=== PATIENT | male | born 1980 | race Two or more races ===

== ENCOUNTER 2018-12-28 10:53 | Emergency (ER) | payer OTHER ==
[~2018-12-28] VITALS: Ht 165.1 cm; Wt 73.5 kg
[2018-12-28 10:53] VITALS: BP 133/85
[~2018-12-28 10:53] MED LIST: LEVE500T9 PO; PHEN100C4 PO
--- NOTE | 2018-12-28 10:55 | NUR ---
pATIENT SEEN IN BED 9. P A/OX4 PATIENT CONNECTED TO MONITOR. NAD. SEIZURE PRECAUTIONS INITIATED. AWAITING MD JARRETT.
--- NOTE | 2018-12-28 11:27 | NUR ---
IV INITIATED. BLOOD DRAWN FOR LAB.
[2018-12-28] MEDS ORDERED: GABAPENTIN 300 MG CAPSULE ONE (11:41)
[2018-12-28] MEDS ORDERED: GABAPENTIN 100 MG CAPSULE ONE (11:41)
[2018-12-28] MEDS ORDERED: GABAPENTIN 100 MG CAPSULE PO ONE (12:00)
--- NOTE | 2018-12-28 12:54 | NUR ---
Felipe sigala in [facility] - 12/28/18 at 1254 by CRISSY Patient discharged to home in stable condition. Written and verbal after care instructions given. Patient verbalizes understanding of instruction.
--- NOTE | 2018-12-28 12:54 | NUR ---
Patient discharged tin custody in stable condition. Written and verbal after care instructions given. Patient verbalizes understanding of instruction.
== END 2018-12-28 12:56 ==
LOC: ER 10:56
DX: G40.909 Epilepsy, unspecified, not intractable, without status epilepticus (principal); F19.90 Other psychoactive substance use, unspecified, uncomplicated; F10.10 Alcohol abuse, uncomplicated; F17.200 Nicotine dependence, unspecified, uncomplicated; Y90.9 Presence of alcohol in blood, level not specified; Z88.0 Allergy status to penicillin

== ENCOUNTER 2018-12-28 14:31 | Emergency (ER) | payer OTHER ==
[~2018-12-28] VITALS: Ht 165.1 cm; Wt 68.0 kg
[2018-12-28 14:40] VITALS: BP 113/73
--- NOTE | 2018-12-28 15:50 | NUR ---
AT BEDSIDE FOR EVAL.
--- NOTE | 2018-12-28 16:19 | NUR ---
Patient discharged in custody in stable condition. Written and verbal after care instructions given. Patient verbalizes understanding of instruction.
== END 2018-12-28 16:24 ==
LOC: ER 14:33
DX: G40.909 Epilepsy, unspecified, not intractable, without status epilepticus (principal); F19.90 Other psychoactive substance use, unspecified, uncomplicated; F10.10 Alcohol abuse, uncomplicated; F17.200 Nicotine dependence, unspecified, uncomplicated; Y90.9 Presence of alcohol in blood, level not specified; Z88.0 Allergy status to penicillin

== ENCOUNTER 2019-01-29 16:02 | Emergency (ER) | payer OTHER ==
[~2019-01-29] VITALS: Ht 165.1 cm; Wt 71.7 kg
[2019-01-29 16:54] LABS: BASOPHILS % (AUTO) 0.5 % (0.0-2.0); EOSINOPHILS % (AUTO) 2.1 % (0.0-6.0); HEMATOCRIT 44 % (39-51); LYMPHOCYTES # (AUTO) 1.7 /CMM (0.8-4.8); LYMPHOCYTES % (AUTO) 21.6 % (20.0-44.0); MEAN CORPUSCULAR HGB CONC 35 g/dl (31.0-36.0); MEAN CORPUSCULAR VOLUME 90 fL (80-96); MONOCYTES % (AUTO) 12.5 % (2.0-12.0); NEUTROPHILS % (AUTO) 63.3 % (43.0-81.0); PLATELET COUNT (AUTO) 271 /CMM (150-450); RED BLOOD CELL COUNT(AUTO) 4.81 MIL/uL (4.5-6.0); WHITE BLOOD COUNT (AUTO) 7.8 K/uL (4.3-11.0)
[2019-01-29] MEDS ORDERED: LEVETIRACETAM (500MG) 1,000 MG in IV NS 0.9% 100 ML IV SCH (17:00)
[2019-01-29 17:18] LABS: ALCOHOL, BLOOD < 3 mg/dL (0-0); CALCIUM, SERUM 8.6 mg/dL (8.5-10.1); CARBON DIOXIDE 29 mmol/L (21-32); CHLORIDE 102 mmol/L (98-107); CREATININE 0.8 mg/dL (0.6-1.3); GLUCOSE 81 mg/dL (74-106); SODIUM SERUM 139 mmol/L (136-145); UREA NITROGEN, BLOOD 16 mg/dL (7-18)
--- NOTE | 2019-01-29 17:45 | NUR ---
Patient discharged to home in stable condition. Written and verbal after care instructions given. Patient verbalizes understanding of instruction. IV removed. Catheter intact and site benign. Pressure and 4x4 applied to site. No bleeding noted.
[2019-01-29 17:46] VITALS: BP 132/70
== END 2019-01-29 17:47 ==
LOC: ER 16:08
DX: G40.909 Epilepsy, unspecified, not intractable, without status epilepticus (principal); H66.91 Otitis media, unspecified, right ear; F19.90 Other psychoactive substance use, unspecified, uncomplicated; F10.10 Alcohol abuse, uncomplicated; F17.200 Nicotine dependence, unspecified, uncomplicated; Y90.0 Blood alcohol level of less than 20 mg/100 ml; Z88.0 Allergy status to penicillin
CPT/HCPCS: 36415; 70450; 71045; 80048; 80307; 85025; 96365; 99284; A6403; J1953; J7030 ×2; G0480

== ENCOUNTER 2019-02-23 14:33 | Emergency (ER) | payer OTHER ==
[~2019-02-23] VITALS: Ht 165.1 cm; Wt 78.9 kg
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
[2019-02-23] MEDS ORDERED: LEVETIRACETAM (250 MG) 250 MG TABLET PO ONE ×2 (15:00→15:05)
--- NOTE | 2019-02-23 15:17 | NUR ---
BLOOD DRAWN AND SENT TO LAB
[2019-02-23 15:19] LABS: BASOPHILS % (AUTO) 0.3 % (0.0-2.0); EOSINOPHILS % (AUTO) 3.3 % (0.0-6.0); HEMATOCRIT 45 % (39-51); HEMOGLOBIN 14.7 g/dL (13.5-17.5); LYMPHOCYTES # (AUTO) 1.6 /CMM (0.8-4.8); LYMPHOCYTES % (AUTO) 18.9 % (20.0-44.0); MEAN CORPUSCULAR HGB CONC 33 g/dl (31.0-36.0); MEAN CORPUSCULAR VOLUME 91 fL (80-96); MONOCYTES # (AUTO) 1.1 /CMM (0.1-1.30); MONOCYTES % (AUTO) 12.9 % (2.0-12.0); NEUTROPHILS # (AUTO) 5.4 /CMM (1.8-8.9); NEUTROPHILS % (AUTO) 64.6 % (43.0-81.0); PLATELET COUNT (AUTO) 247 /CMM (150-450); RED BLOOD CELL COUNT(AUTO) 4.88 MIL/uL (4.5-6.0); WHITE BLOOD COUNT (AUTO) 8.3 K/uL (4.3-11.0)
[2019-02-23 15:27] LABS: CALCIUM, SERUM 8.8 mg/dL (8.5-10.1); CREATININE 0.8 mg/dL (0.6-1.3); POTASSIUM 4.2 mmol/L (3.5-5.1)
--- NOTE | 2019-02-23 16:33 | NUR ---
Patient discharged in custody of [facility] in stable condition. Written and verbal after care instructions given. 

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
[2019-02-23 16:43] VITALS: BP 132/84
== END 2019-02-23 16:44 ==
LOC: ER 14:35
DX: S60.222A Contusion of left hand, initial encounter (principal); S00.511A Abrasion of lip, initial encounter; G40.909 Epilepsy, unspecified, not intractable, without status epilepticus; F19.90 Other psychoactive substance use, unspecified, uncomplicated; F10.10 Alcohol abuse, uncomplicated; F17.200 Nicotine dependence, unspecified, uncomplicated; Y90.9 Presence of alcohol in blood, level not specified; Z88.0 Allergy status to penicillin; Z79.899 Other long term (current) drug therapy; W18.39XA Other fall on same level, initial encounter; Y93.89 Activity, other specified; Y92.89 Other specified places as the place of occurrence of the external cause; Y99.8 Other external cause status
CPT/HCPCS: 36415; 73130-TC; 80048-TC; 85025-TC

== ENCOUNTER 2020-02-05 15:44 | Emergency (ER) | payer OTHER, MEDICAID ==
[~2020-02-05] VITALS: Ht 167.6 cm; Wt 90.7 kg
--- NOTE | 2020-02-05 15:55 | NUR ---
BIB PEDIATRICIAN/MEDICAL DOCTOR OFFICERS FOR MEDICAL CLEARANCE,ABRASIONS/BRUISE TO TOP OF HEAD SUSTAINED WHEN HE HIT HIS HEAD DURING A SEIZURE IN DETENTION. PATIENT A/OX4, BREATHING EVEN AND UNLABORED, NO SOB NOTED, NEEDS ATTENDED, KEPT COMFORTABLE.
[2020-02-05] MEDS ORDERED: LEVETIRACETAM (250 MG) 250 MG TABLET PO ONE ×2 (16:00→16:03)
[2020-02-05] MEDS ORDERED: TDAP [DIPH/PERTUSSIS/TET] 0.5 ML VIAL IM ONE ×2 (16:00→16:03)
--- NOTE | 2020-02-05 16:09 | NUR ---
PATIENT TAKEN TO CT.
--- NOTE | 2020-02-05 17:01 | NUR ---
CORRECTION: DISCHARGED TO PD. MEDICALLY CLEARED FOR BOOKING.
--- NOTE | 2020-02-05 17:01 | NUR ---
Patient discharged to home in stable condition. Written and verbal after care instructions given. Patient verbalizes understanding of instruction.
[2020-02-05 17:02] VITALS: BP 163/80
== END 2020-02-05 17:03 ==
LOC: ER 15:48
DX: S00.01XA Abrasion of scalp, initial encounter (principal); G40.909 Epilepsy, unspecified, not intractable, without status epilepticus; Z88.0 Allergy status to penicillin; Z79.899 Other long term (current) drug therapy; W19.XXXA Unspecified fall, initial encounter; Y93.89 Activity, other specified; Y92.89 Other specified places as the place of occurrence of the external cause; Y99.8 Other external cause status
CPT/HCPCS: 70450-TC; 90715

== ENCOUNTER 2021-03-10 04:03 | Emergency (ER) | payer OTHER ==
[~2021-03-10] VITALS: Ht 165.1 cm; Wt 79.4 kg
[2021-03-10] MEDS ORDERED: MORPHINE SULFATE INJ 4 MG/ML DISP.SYRIN ONE ×2 (04:15→05:28)
[2021-03-10] MEDS ORDERED: ONDANSETRON HCL/PF 4 MG/2 ML VIAL ONE (04:16)
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
[2021-03-10] MEDS ORDERED: MORPHINE SULFATE INJ 2 MG/ML DISP.SYRIN IV ONE ×2 (04:30→05:30)
[2021-03-10] MEDS ORDERED: ONDANSETRON HCL/PF 4 MG/2 ML VIAL IVP ONE (04:30)
[2021-03-10] MEDS ORDERED: LIDOCAINE 1% INJ 50 ML MDV IJ ONE (05:16)
[2021-03-10] MEDS ORDERED: LIDOCAINE HCL/PF 1% 30 ML VIAL TP ONE (05:30)
[2021-03-10] MEDS ORDERED: IBUP-1957 PO (06:32)
--- NOTE | 2021-03-10 06:50 | NUR ---
Patient discharged to home in stable condition. Written and verbal after care instructions given. Patient verbalizes understanding of instruction.
[2021-03-10 06:57] VITALS: BP 137/85
== END 2021-03-10 06:58 | disposition home or self-care (01) ==
LOC: ER 04:05
DX: M79.671 Pain in right foot (principal); M79.674 Pain in right toe(s); G40.909 Epilepsy, unspecified, not intractable, without status epilepticus; Z88.0 Allergy status to penicillin; Z60.2 Problems related to living alone; Z79.899 Other long term (current) drug therapy
CPT/HCPCS: 20600; 73660; 96374; 96375; 96376; 99284; A6403; A6407; J2270 ×2; J2405; J3490 ×2

== ENCOUNTER 2022-05-21 04:00 | Emergency (ER) | payer OTHER ==
[~2022-05-21] VITALS: Ht 165.1 cm; Wt 68.9 kg
[~2022-05-21 04:00] MED LIST changes: +IBUP-1957 PO
[2022-05-21 04:25] VITALS: BP 132/77
--- NOTE | 2022-05-21 04:29 | NUR ---
BIB BROTHER WITH CC OF ABSCESS ON LEFT UPPER ARM. PATIENT PAIN SCALE IS 10/10. PATIENT ALREADY CAME FROM [facility] AND BEEN SEEN AND TREATED BY ER MD. PATIENT WAS ADVISED TO TAKE OTC PAIN MEDICINE AND WAS PRESCRIBED ANTIBIOTIC, CLAIMED BY PATIENT. HE CAME TO [facility] BECAUSE HE IS NOT SATISFIED WITH OTC PAIN MEDICATION THAT WAS ADVISED TO HIM. PATIENT WANTS MORE STRONGER PAIN MEDICATION. PLACED IN ROOM 19. DR CANDE MANE AWARE.
--- NOTE | 2022-05-21 04:39 | NUR ---
PATIENT LEFT WITHOUT BEING SEEN BY
== END 2022-05-21 04:53 | disposition left against medical advice (07) ==
LOC: ER 04:02
DX: Z53.21 Procedure and treatment not carried out due to patient leaving prior to being seen by health care provider (principal)

== ENCOUNTER 2022-08-13 15:58 | Emergency (ER) | payer OTHER ==
[~2022-08-13] VITALS: Ht 165.1 cm; Wt 68.0 kg
--- NOTE | 2022-08-13 15:58 | NUR ---
PATIENT BIBS FOR GLF, A/O X 3, ABLE TO MAKE NEEDS KNOWN, TOLERATING WELL ON ROOM AIR.
[2022-08-13] MEDS ORDERED: KETOROLAC TROMETHAMINE INJ 60 MG/2 ML VIAL IM ONE ×2 (16:30→16:32)
--- NOTE | 2022-08-13 16:42 | NUR ---
Patient discharged to home in stable condition. Written and verbal after care instructions given. Patient verbalizes understanding of instruction.
[2022-08-13 16:45] VITALS: BP 126/88
== END 2022-08-13 16:45 | disposition home or self-care (01) ==
LOC: ER 16:07
DX: S00.11XA Contusion of right eyelid and periocular area, initial encounter (principal); G40.909 Epilepsy, unspecified, not intractable, without status epilepticus; F17.200 Nicotine dependence, unspecified, uncomplicated; Z79.899 Other long term (current) drug therapy; Z60.2 Problems related to living alone; F15.10 Other stimulant abuse, uncomplicated; Z59.00 Homelessness unspecified; Z88.0 Allergy status to penicillin; W18.30XA Fall on same level, unspecified, initial encounter; Y93.89 Activity, other specified; Y92.89 Other specified places as the place of occurrence of the external cause; Y99.8 Other external cause status
CPT/HCPCS: 99283; 99406; 96372; J1885

== ENCOUNTER 2022-09-13 12:21 | Emergency (ER) | payer OTHER ==
[~2022-09-13] VITALS: Ht 165.1 cm; Wt 61.2 kg
[2022-09-13 14:08] VITALS: BP 121/81
== END 2022-09-13 14:08 ==
LOC: ER 12:25
DX: S01.01XA Laceration without foreign body of scalp, initial encounter (principal); K40.90 Unilateral inguinal hernia, without obstruction or gangrene, not specified as recurrent; R56.9 Unspecified convulsions; Z60.2 Problems related to living alone; X58.XXXA Exposure to other specified factors, initial encounter; Y93.89 Activity, other specified; Y92.89 Other specified places as the place of occurrence of the external cause; Y99.8 Other external cause status
CPT/HCPCS: 70450-TC